=== PATIENT | male | born 1980 | race African-American/Black ===

== ENCOUNTER 2020-11-27 21:29 | Emergency (ER) | payer MEDICAID ==
[~2020-11-27] VITALS: Ht 180.3 cm; Wt 116.0 kg
[2020-11-27 23:15] LABS: BASOPHILS % 0.9 % (0.0-2.0); EOSINOPHILS % 2.1 % (0.0-5.0); HEMOGLOBIN. 12.9 g/dL (14.0-18.0); LYMPHOCYTES % 27.2 % (20.0-50.0); MEAN CORPUSCULAR HEMOGLOBIN 27.4 pg (28.0-32.0); MEAN CORPUSCULAR VOLUME 80.9 fL (80.0-94.0); MEAN PLATELET VOLUME 8.5 fl (7.4-10.4); MONOCYTES % 7.6 % (2.0-8.0); NEUTROPHILS % 62.2 % (40.0-76.0); PLATELET 298 x1000/uL (130-400); RED BLOOD CELL COUNT 4.69 mill/uL (4.7-6.1); RED CELL DISTRIBUTION WIDTH 15.2 % (11.6-14.6)
[2020-11-27] MEDS ORDERED: ACETAMINOPHEN 325MG TABLET PO ONE (23:15)
[2020-11-27 23:22] LABS: CHLORIDE 110 mEq/L (98-107)
[2020-11-27 23:27] LABS: ETHANOL BLOOD < 10 mg/dL
[2020-11-28 01:34] LABS: *AMPHETAMINES SCREEN URINE NEGATIVE (NEGATIVE); *BARBITURATES SCREEN URINE NEGATIVE (NEGATIVE); *BENZODIAZEPINES SCREEN URINE NEGATIVE (NEGATIVE); *COCAINE SCREEN URINE NEGATIVE (NEGATIVE); CANNABINOID URINE SCREEN PRESUMTIVE POSITIVE (NEGATIVE); METHADONE URINE SCREEN NEGATIVE (NEGATIVE); OPIATES URINE SCREEN NEGATIVE (NEGATIVE); PHENCYCLIDINE URINE SCREEN NEGATIVE (NEGATIVE)
[2020-11-28] MEDS ORDERED: IBUP-2029 MT (02:59)
[2020-11-28 03:16] VITALS: BP 117/74
== END 2020-11-28 03:25 | disposition home or self-care (01) ==
LOC: ER 21:29
DX: R07.89 Other chest pain (principal)
CPT/HCPCS: 36415; 71045; 73130; 80053; 80305; 80320; 83880; 84484; 85025; 85379; 93005; 99285; G0480

== ENCOUNTER 2021-06-14 01:04 | Emergency (ER) | payer SELFPAY ==
[~2021-06-14] VITALS: Ht 180.3 cm; Wt 120.0 kg
[~2021-06-14 01:04] MED LIST: IBUP-2029 MT
[2021-06-14 01:17] VITALS: BP 115/50
[2021-06-14] MEDS ORDERED: CEPH500C2 MT (03:36)
== END 2021-06-14 04:46 | disposition home or self-care (01) ==
LOC: ER 01:33
DX: L03.113 Cellulitis of right upper limb (principal)
CPT/HCPCS: 99283

== ENCOUNTER 2021-06-30 00:13 | Emergency (ER) | payer SELFPAY ==
[~2021-06-30] VITALS: Ht 180.3 cm; Wt 121.0 kg
[~2021-06-30 00:13] MED LIST changes: +CEPH500C2 MT
[2021-06-30] MEDS ORDERED: MUPI15CR11 TP (01:06)
[2021-06-30] MEDS ORDERED: AMOX-424 MT (01:06)
[2021-06-30 01:30] VITALS: BP 132/96
[2021-06-30] MEDS ORDERED: MUPIROCIN 2% OINT 22GM TOP SCH (01:30)
[2021-06-30] MEDS ORDERED: AMOXICILLIN/POTASSIUM CLAVULANATE 875/125MG TAB PO NR (01:30)
== END 2021-06-30 01:38 | disposition home or self-care (01) ==
LOC: ER 00:13
DX: L03.113 Cellulitis of right upper limb (principal)
CPT/HCPCS: 99283